=== PATIENT | male | born 1940 | race Caucasian/White ===

== ENCOUNTER 2018-12-22 10:02 | Outpatient (CLI) | payer MEDICARE, OTHER ==
[~2018-12-22 10:02] MED LIST: ALBU8HFA PO; ASCO500C15 PO; ASPI81TA52 PO; ATRIN INH; BUDE10.22 INH; CHOL100046 PO; COL100C PO; FINA5TAB11 PO; FLO0.4C PO; HYDR-3972 PO; LISI-604 PO; MAGN200T5 PO; MELA3TAB PO; MULT1TAB74 PO; OMEG1CAP46 PO; SIMV40TA PO
== END 2018-12-22 23:59 | disposition home or self-care (01) ==
LOC: RAD 10:02
PROVIDERS: ATTEND Thoracic Surgery (Cardiothoracic Vascular Surgery)
DX: J44.9 Chronic obstructive pulmonary disease, unspecified (principal); J90 Pleural effusion, not elsewhere classified; R91.1 Solitary pulmonary nodule
CPT/HCPCS: 71046

== ENCOUNTER 2019-04-04 12:33 | Outpatient (CLI) | payer OTHER ==
[~2019-04-04] VITALS: Ht 177.8 cm; Wt 83.9 kg
[~2019-04-04 12:33] MED LIST changes: -MELA3TAB PO; +MELA3TAB64 PO
[2019-04-04] MEDS ORDERED: albuterol 2.5 MG/3 ML nebule NEB ONE (13:00)
== END 2019-04-04 23:59 | disposition home or self-care (01) ==
LOC: RT 12:33
PROVIDERS: ATTEND Orthopaedic Surgery
DX: C34.90 Malignant neoplasm of unspecified part of unspecified bronchus or lung (principal); J98.8 Other specified respiratory disorders; J44.9 Chronic obstructive pulmonary disease, unspecified; Z87.891 Personal history of nicotine dependence
CPT/HCPCS: 94060; 94760

== ENCOUNTER 2019-08-21 04:42 | Outpatient (CLI) | payer MEDICARE, OTHER | END 2019-08-21 23:59 | disposition home or self-care (01) | LOC: RT 04:42 | PROVIDERS: ATTEND Internal Medicine Pulmonary Disease | DX: J44.9 Chronic obstructive pulmonary disease, unspecified (principal) | CPT/HCPCS: 94618 ==

== ENCOUNTER 2020-04-08 07:24 | Emergency (ER) | payer MEDICARE, OTHER ==
[~2020-04-08 07:24] MED LIST changes: +MELA3TAB39 PO; -MELA3TAB64 PO; +MULT-620 PO; -MULT1TAB74 PO
[2020-04-08 09:54] VITALS: BP 127/77
== END 2020-04-08 09:57 | disposition home or self-care (01) ==
LOC: ER 07:25
DX: R04.0 Epistaxis (principal); R05 Cough; J44.9 Chronic obstructive pulmonary disease, unspecified; Z98.890 Other specified postprocedural states; Z79.82 Long term (current) use of aspirin; Z79.899 Other long term (current) drug therapy
CPT/HCPCS: 30901; 99284

== ENCOUNTER 2020-11-12 08:39 | Outpatient (CLI) | payer OTHER ==
[~2020-11-12 08:39] MED LIST changes: -ASCO500C15 PO; +ASCO500C18 PO; -LISI-604 PO; +LISI-790 PO
== END 2020-11-12 23:59 | disposition home or self-care (01) ==
LOC: RT 08:39
PROVIDERS: ATTEND Orthopaedic Surgery
DX: R94.2 Abnormal results of pulmonary function studies (principal)
CPT/HCPCS: 94010